=== PATIENT | male | born 1945 | race Caucasian/White ===

== ENCOUNTER 2021-03-17 13:42 | Outpatient (CLI) | payer MEDICARE | END 2021-03-17 13:43 | disposition home or self-care (01) | LOC: BICRAD 13:42 | PROVIDERS: ATTEND Internal Medicine Pulmonary Disease | DX: R06.00 Dyspnea, unspecified (principal) | CPT/HCPCS: 71046 ==

== ENCOUNTER 2021-11-27 10:07 | Outpatient (CLI) | payer MEDICARE | END 2021-11-27 10:08 | disposition home or self-care (01) | LOC: RAD 10:07 | PROVIDERS: ATTEND Internal Medicine Critical Care Medicine | DX: R06.00 Dyspnea, unspecified (principal); I50.9 Heart failure, unspecified | CPT/HCPCS: 71046 ==

== ENCOUNTER 2022-08-20 18:55 | Inpatient (IN) | payer MEDICARE ==
[~2022-08-20 18:55] MED LIST: Iopamidol-370 76% 500 ML 1 ML ONE
[2022-08-20 20:15] LABS: #Eosinphils 0.2 thou/uL (0.0-0.7); #Lymphocytes 1.3 thou/uL (1.20-3.40); #Monocytes 0.7 thou/uL (0.11-0.59); #Neutrophils 6.5 thou/uL (1.40-6.50); %Basophils 0.5 % (0.0-1.0); %Eosinophils 2.8 % (0.0-10.0); %Lymphocytes 14.6 % (21.0-51.0); %Neutrophils 74.1 % (42.0-75.0); Hemoglobin 14.8 g/dL (14.0-18.0); INR-International Normal Ratio 1.6; Mean Corpuscular Hemoglobin 30.5 pg (27.0-31.0); Mean Corpuscular Volume 92.3 fl (78.0-98.0); Mean Platelet Volume 7.3 fL (7.4-10.4); PTT 42.8 sec (22.9-36.1); Platelet Count 212 10x3/uL (130-400); Prothrombin Time 19.4 sec (12.0-14.7); Red Blood Cell (RBC) Count 4.85 mill/uL (4.70-6.10); White Blood Cell (WBC) Count 8.8 10x3/uL (4.8-10.8)
[2022-08-20 20:19] LABS: Actual Bicarbonate (HCO3v) 27 mEq/L (22-28); Analyzer IN Cardio ER; Base Excess 2.1 mEq/L (-2.0 to +3.0); Calcium, Ionized (venous) 1.12 mmol/L (1.16-1.32); Chloride (VBG) 98 mmol/L (98-106); Hemoglobin (Hb) 15.6 g/dL (12.6-17.4); Potassium (VBG) 3.91 mmol/L (3.70-5.30); Sodium 135.6 mmol/L (133-146); pH (venous) 7.41 (7.32-7.43)
[2022-08-20 20:26] LABS: ALT (SGPT) 21 U/L (8-55); AST (SGOT) 30 U/L (5-34); Alkaline Phosphatase 105 U/L (40-110); Anion Gap 14 mmol/L (10-20); BUN (Urea Nitrogen) 24 mg/dL (8.4-25.7); CK (CPK) 41 U/L (30-200); Calc. Creatinine Clearance 0 mL/min (70-130); Calcium 9.6 mg/dL (7.8-10.44); Carbon Dioxide 24 mmol/L (23-31); Chloride 102 mmol/L (98-107); Estimated GFR 69; Globulin 3.4 g/dL (2.4-3.5); Glucose 101 mg/dL (83-110); Potassium 4.3 mmol/L (3.5-5.1); Protein, Total 7.4 g/dL (5.8-8.1); Sodium 136 mmol/L (136-145)
[2022-08-20 20:36] LABS: Bilirubin Negative (Negative); Blood, Urine Negative (Negative); Clarity Clear (Clear); Glucose, Urine (Dipstick) Normal (Negative); Ketone, Urine 10 mg/dL (Negative); Leukocyte Negative Leu/uL (Negative); Nitrite Negative (Negative); Protein, Urine (Dipstick) 20 mg/dL (Neg-Trace); Urobilinogen Normal mg/dL (Less than 2)
[2022-08-20] MEDS ORDERED: Aspirin Chewable 81 MG TAB ONE (20:36)
[2022-08-20 20:37] LABS: Specific Gravity, Urine 1.048 (1.002-1.036)
[2022-08-20] MEDS ORDERED: hydrALAZINE 20 MG/ML VIAL ONE ×2 (20:37→23:29)
[2022-08-20] MEDS ORDERED: hydrALAZINE 20 MG/ML VIAL SLOW IVP PRN (22:10)
[2022-08-20] MEDS ORDERED: Ondansetron PF 4 MG/2 ML Vial IVP PRN (22:15)
[2022-08-20] MEDS ORDERED: Ondansetron ODT 4 MG TAB SL PRN (22:15)
[2022-08-20] MEDS ORDERED: Acetaminophen 325 MG TAB PO PRN (22:15)
[2022-08-21] MEDS ORDERED: Acetaminophen 650 MG Suppository PR PRN (02:47)
[2022-08-21 06:28] LABS: #Lymphocytes 0.8 thou/uL (1.20-3.40); #Monocytes 0.7 thou/uL (0.11-0.59); #Neutrophils 13.1 thou/uL (1.40-6.50); %Basophils 0.2 % (0.0-1.0); %Eosinophils 0.1 % (0.0-10.0); %Lymphocytes 5.3 % (21.0-51.0); %Monocytes 4.9 % (0.0-10.0); %Neutrophils 89.6 % (42.0-75.0); Hemoglobin 14.2 g/dL (14.0-18.0); Mean Corpuscular HGB CONC 34.4 g/dL (32.0-36.0); Mean Corpuscular Hemoglobin 31.1 pg (27.0-31.0); Mean Corpuscular Volume 90.4 fl (78.0-98.0); Mean Platelet Volume 7.4 fL (7.4-10.4); Platelet Count 210 10x3/uL (130-400); RBC Distribution Width 13.1 % (11.5-14.5); Red Blood Cell (RBC) Count 4.56 mill/uL (4.70-6.10); White Blood Cell (WBC) Count 14.6 10x3/uL (4.8-10.8)
[2022-08-21 06:48] LABS: Anion Gap 14 mmol/L (10-20); BUN (Urea Nitrogen) 17 mg/dL (8.4-25.7); Calc. Creatinine Clearance 100 mL/min (70-130); Calcium 9.1 mg/dL (7.8-10.44); Carbon Dioxide 24 mmol/L (23-31); Chloride 99 mmol/L (98-107); Cholesterol 114 mg/dl (< 200 Desired); Estimated GFR 90; Glucose 136 mg/dL (83-110); HDL Cholesterol 57 mg/dL (>60 Neg Risk); LDL Cholesterol, Calculated 51 mg/dL; Potassium 3.8 mmol/L (3.5-5.1); Sodium 133 mmol/L (136-145); Triglycerides 28 mg/dL (Less than 150)
[2022-08-21] MEDS ORDERED: Aspirin Chewable 81 MG TAB PO SCH (09:00)
[2022-08-21] MEDS: Aspirin 81 mg Enteric Coated Tablet PO SCH (10:18)
[2022-08-22 05:49] LABS: #Basophils 0.1 thou/uL (0.0-0.2); #Eosinphils 0.3 thou/uL (0.0-0.7); #Lymphocytes 1.3 thou/uL (1.20-3.40); #Monocytes 1.1 thou/uL (0.11-0.59); #Neutrophils 7.4 thou/uL (1.40-6.50); %Basophils 0.9 % (0.0-1.0); %Eosinophils 3.3 % (0.0-10.0); %Lymphocytes 12.5 % (21.0-51.0); %Monocytes 10.5 % (0.0-10.0); %Neutrophils 72.9 % (42.0-75.0); Hemoglobin 12.8 g/dL (14.0-18.0); Mean Corpuscular HGB CONC 32.5 g/dL (32.0-36.0); Mean Corpuscular Hemoglobin 30.1 pg (27.0-31.0); Mean Corpuscular Volume 92.7 fl (78.0-98.0); Mean Platelet Volume 7.2 fL (7.4-10.4); Platelet Count 197 10x3/uL (130-400); RBC Distribution Width 13.2 % (11.5-14.5); Red Blood Cell (RBC) Count 4.24 mill/uL (4.70-6.10); White Blood Cell (WBC) Count 10.1 10x3/uL (4.8-10.8)
[2022-08-22] MEDS: Aspirin 81 mg Enteric Coated Tablet PO SCH (08:23)
[2022-08-22] MEDS ORDERED: Atorvastatin Calcium 40 MG TAB PO SCH (21:00)
[2022-08-23 06:13] LABS: #Eosinphils 0.2 thou/uL (0.0-0.7); #Monocytes 1.2 thou/uL (0.11-0.59); #Neutrophils 10.1 thou/uL (1.40-6.50); %Basophils 0.1 % (0.0-1.0); %Eosinophils 1.9 % (0.0-10.0); %Lymphocytes 7.9 % (21.0-51.0); %Monocytes 9.3 % (0.0-10.0); %Neutrophils 80.9 % (42.0-75.0); Hemoglobin 14.4 g/dL (14.0-18.0); Mean Corpuscular HGB CONC 33.3 g/dL (32.0-36.0); Mean Corpuscular Hemoglobin 30.8 pg (27.0-31.0); Mean Corpuscular Volume 92.5 fl (78.0-98.0); Mean Platelet Volume 7.2 fL (7.4-10.4); Platelet Count 201 10x3/uL (130-400); RBC Distribution Width 13.1 % (11.5-14.5); Red Blood Cell (RBC) Count 4.68 mill/uL (4.70-6.10); White Blood Cell (WBC) Count 12.5 10x3/uL (4.8-10.8)
[2022-08-23] MEDS: Aspirin 81 mg Enteric Coated Tablet PO SCH (09:36)
[2022-08-23] MEDS ORDERED: Acetaminophen 325 MG TAB PO PRN (11:15)
[2022-08-23 15:43] VITALS: BP 123/68; TEMP 98.9
[2022-08-24] MEDS ORDERED: FLU VACC QS2022-23(65YR UP)/PF 240 MCG/0.7 ML SYRINGE IM ONE (09:00)
== END 2022-08-23 18:55 | disposition home health service (06) | DRG 69 ==
LOC: ERS 18:55 → ERHOLD 22:05 → NEURO 08-21 01:18 → OBSVTOIN 08-22 10:53
PROVIDERS: ADMIT Student in an Organized Health Care Education/Training Program; ATTEND Internal Medicine
DX: G45.9 Transient cerebral ischemic attack, unspecified (principal); I16.9 Hypertensive crisis, unspecified; R47.01 Aphasia; G93.49 Other encephalopathy; G91.2 (Idiopathic) normal pressure hydrocephalus; Z20.822 Contact with and (suspected) exposure to COVID-19; I48.91 Unspecified atrial fibrillation; F41.9 Anxiety disorder, unspecified; I10 Essential (primary) hypertension; R47.81 Slurred speech; Z79.51 Long term (current) use of inhaled steroids; Z79.01 Long term (current) use of anticoagulants; Z79.899 Other long term (current) drug therapy; Z79.82 Long term (current) use of aspirin
CPT/HCPCS: 36415; 36416; 70450; 70496; 70498; 70551; 71045; 80048; 80061; 81003; 82550; 82805; 83605; 84145; 84443; 84484; 85025; 85379; 85610; 85730; 87040; 93005; 93306; 94760; 96372; 96374; 96376; G0378; J0360; J1650; Q9967; U0003; U0005

== ENCOUNTER 2023-05-13 06:27 | Day surgery (SDC) | payer MEDICARE ==
[2023-04-06 09:10] LABS: INR-International Normal Ratio 1.2; Prothrombin Time 13.2 sec (9.5-12.1)
[2023-04-06 09:18] LABS: Hematocrit 41.3 % (38.8-50.0); Hemoglobin 13.3 g/dL (13.5-17.5); Mean Corpuscular HGB CONC 32.2 g/dL (32.0-36.0); Mean Corpuscular Hemoglobin 28.7 pg (27.0-33.0); Mean Corpuscular Volume 89.2 fl (81.2-95.1); Mean Platelet Volume 9.7 fl (7.4-10.4); Platelet Count 248 10x3/uL (150-450); RBC Distribution Width 15.2 % (11.5-14.5); Red Blood Cell (RBC) Count 4.63 10x6/uL (4.32-5.72)
[2023-04-06 09:32] LABS: Anion Gap 12 mmol/L (10-20); BUN (Urea Nitrogen) 21 mg/dL (8.4-25.7); Calc. Creatinine Clearance 85 mL/min (70-130); Calcium 9.3 mg/dL (7.8-10.44); Carbon Dioxide 29 mmol/L (23-31); Chloride 103 mmol/L (98-107); Estimated GFR 75; Glucose 94 mg/dL (83-110); Potassium 4.3 mmol/L (3.5-5.1); Sodium 140 mmol/L (136-145)
[2023-05-03 10:48] VITALS: BMI 27.7
[2023-05-03 11:33] LABS: Hematocrit 40.4 % (38.8-50.0); Mean Corpuscular HGB CONC 32.2 g/dL (32.0-36.0); Mean Corpuscular Hemoglobin 29.1 pg (27.0-33.0); Mean Corpuscular Volume 90.6 fl (81.2-95.1); Mean Platelet Volume 9.5 fl (7.4-10.4); Platelet Count 281 10x3/uL (150-450); RBC Distribution Width 14.7 % (11.5-14.5); Red Blood Cell (RBC) Count 4.46 10x6/uL (4.32-5.72); White Blood Cell (WBC) Count 8.8 10x3/uL (3.5-10.5)
[2023-05-03 11:42] LABS: INR-International Normal Ratio 1.3; Prothrombin Time 13.4 sec (9.5-12.1)
[2023-05-03 11:47] LABS: Anion Gap 15 mmol/L (10-20); BUN (Urea Nitrogen) 17 mg/dL (8.4-25.7); Calc. Creatinine Clearance 92 mL/min (70-130); Calcium 9.3 mg/dL (7.8-10.44); Carbon Dioxide 28 mmol/L (23-31); Chloride 102 mmol/L (98-107); Estimated GFR 82; Glucose 117 mg/dL (83-110); Potassium 4.1 mmol/L (3.5-5.1); Sodium 141 mmol/L (136-145)
[2023-05-13] MEDS ORDERED: Protamine Sulfate 50 MG/5 ML VIAL ONE (06:45)
[2023-05-13] MEDS ORDERED: Heparin 10,000 UNITS/ 10 ML VIAL ONE (06:45)
[2023-05-13] MEDS ORDERED: Heparin 25,000 units/D5W 500 ML ONE (06:46)
[2023-05-13] MEDS ORDERED: Ondansetron PF 4 MG/2 ML Vial ONE (07:45)
[2023-05-13] MEDS ORDERED: PROPOFOL 200 MG/20 ML VIAL ONE (07:45)
[2023-05-13] MEDS ORDERED: Lidocaine 1% PF 5 ML VIAL ONE (07:45)
[2023-05-13] MEDS ORDERED: Rocuronium Bromide 10 MG/ML (10ML VIAL) ONE (07:45)
[2023-05-13] MEDS ORDERED: Phenylephrine 10 MG/ML VIAL ONE (08:01)
[2023-05-13] MEDS ORDERED: fentaNYL 50 mcg/mL 1 mL Vial ONE (08:01)
== END 2023-05-13 15:30 | disposition home or self-care (01) ==
LOC: SDC 06:27
PROVIDERS: ATTEND Internal Medicine Cardiovascular Disease
PROC: 02583ZZ Destruction of Conduction Mechanism, Percutaneous Approach (ICD-10-PCS; principal; 2023-05-13)
PROC: 02K83ZZ Map Conduction Mechanism, Percutaneous Approach (ICD-10-PCS; 2023-05-13)
DX: I48.19 Other persistent atrial fibrillation (principal)
CPT/HCPCS: 80048 ×2; 85027 ×2; 85347 ×2; 85610 ×2; 93005; 93312; 93655; 93656; C1731; C1732; C1759; C1760; C1894 ×5; C2630; J3010; 93010; J1644; J2370; J2405; J2704; J2720